=== PATIENT | female | born 1950 | race Caucasian/White ===

== ENCOUNTER 2017-03-19 18:26 | Observation (INO) ==
[2017-03-19] MEDS ORDERED: 0.9 % Sodium Chloride 1,000 ML IVC ONE (19:24)
--- NOTE | 2017-03-19 19:34 | Emergency Department Note ---
Disposition Clinical Impression: Weakness Disposition: Still a Patient Condition: Good Referrals: NO,PCP [Primary Care Provider] - Forms: ED Satisfaction Letter Fall HPI - General Chief Complaint: ED Fall Stated Complaint: fall last week, not feeling like her self Time Seen by Provider: 03/19/17 19:07 Source: patient - History of Present Illness HPI Narrative: This is a 66-year-old female who is brought in by her daughter today for altered mental status confusion urinating on herself and not quite acting right. She also noticed that her blood pressure is dropping. She states she has had quite a few bouts of diarrhea in the last week as well. She states that she fell 4 times in the last 3 weeks most recent time was a few days ago when she struck her head at that time. She did not get evaluated for it. Daughter states that when the acute change in mental status occurred. She states she is more argumentative although that is her baseline because of her dementia but also that she is just not quite herself. Daughter states that she has not been taking her medications and she is not being compliant. She currently lives with another daughter and refuses to go to [facility] at this time. Patient is now urinating on herself frequently and daughter is having to provide her with depends which she has never needed before. They are also describing increased weakness. No fevers no back pain she has also developed a cough lately no chest pain no headache - Related Data Home Medications Medication Instructions Recorded Confirmed Butenafine HCl [Lotrimin Ultra] 12 gm TP 03/19/17 Calcium Carbonate/Vitamin D3 1 each PO DAILY 03/19/17 03/19/17 [Calcium 500 + Vit D Caplet] Donepezil HCl [Aricept] 5 mg PO HS 03/19/17 03/19/17 Fluticasone Propionate [Flovent 50 mcg IH 03/19/17 Diskus] Glimepiride [Amaryl] 2 mg PO 0800 03/19/17 03/19/17 Losartan Potassium [Cozaar] 25 mg PO DAILY 03/19/17 03/19/17 Metformin HCl [Glucophage] 1,000 mg PO BID 03/19/17 03/19/17 Pravastatin Sodium [Pravachol] 20 mg PO 03/19/17 Allergies Allergy/AdvReac Type Severity Reaction Status Date / Time sulfamethoxazole Allergy Rash Verified 03/19/17 18:28 [From Bactrim] trimethoprim [From Bactrim] Allergy Rash Verified 03/19/17 18:28 Review of Systems: ROS reviewed and negative except as per HPI Chart generated with voice recognition software Fall PMH - Past Medical History Medical history: Reports: dementia, diabetes, hypertension Reports: Recurrent Falls Psychiatric history: Reports: no psych history - Social History Smoking Status: Current some day smoker Alcohol use: Reports: none Drug use: Reports: none Physical Exam General: NAD, slightly hypotensive Head: normocephalic, atraumatic Neck: NO CLA, Supple Chest wall: normal rise, no crepitus, no deformity noted, Lungs: CTAB Heart: RRR Abd: soft, nontender Ext: moves all four extremities, no obvious deformities Skin: cap refill normal, warm, dry Psych: normal affect, not anxious - General Limitations: no limitations General appearance: alert Course Vital Signs Temperature 98.0 F 03/19/17 18:29 Pulse Rate 89 03/19/17 18:29 Respiratory Rate 18 03/19/17 18:29 Blood Pressure 99/66 03/19/17 18:29 O2 Sat by Pulse Oximetry 97 03/19/17 18:29 Temperature 98.0 F 03/19/17 18:29 Pulse Rate 89 03/19/17 18:29 Respiratory Rate 18 03/19/17 18:29 Blood Pressure 99/66 03/19/17 18:29 O2 Sat by Pulse Oximetry 97 03/19/17 18:29 Oxygen Delivery Oxygen Delivery Room Air S.B.A.R. - S.B.A.R. Situation: Demographics, MOA Background: Presenting Complaint, Relevant PMH, Meds, & Allergies Assessment: Vital Signs, Course and respsone to treatment, Exam Concerns, Patient/Family Expectation, Pertinant Lab Results, Outstanding Labs Recommendation: Recommendation based on pending studies, treatments, or consults S.B.A.R. Report Given to: Dr Brandon MendesB.ALetty Repor Time: 20:02
[2017-03-19 20:02] LABS: Basophils % 0.2 %; Eosinophils # 0.1 K/mcL (0.0-0.6); Eosinophils % 1.5 %; Hematocrit 34.2 % (35.3-44.9); Hemoglobin 10.9 g/dL (11.5-15.4); Immature Granulocytes % 0.2 % (0-4); Lymphocytes # 1.4 K/mcL (0.6-4.6); Mean Corpuscular HGB Conc 31.9 g/dL (31.6-35.5); Mean Corpuscular Hemoglobin 28.1 pg (28.0-33.3); Mean Corpuscular Volume 88.1 fL (83.0-100.0); Mean Platelet Volume 8.5 fL (9.4-12.4); Monocytes # 0.4 K/mcL (0.0-1.3); Monocytes % 7.9 %; Neutrophils # 3.5 K/mcL (1.6-8.9); Platelet Count 275 K/mcL (140-400); Red Blood Count 3.88 M/mcL (3.82-4.97); Red Cell Distribution Width 14.6 % (11.5-14.5); Segmented Neutrophils % 65.2 %
[2017-03-19 20:18] LABS: BUN/Creatinine Ratio 28 (6-26); Blood Urea Nitrogen 30 mg/dL (7-20); Calcium 8.5 mg/dL (8.6-10.8); Carbon Dioxide 24 mEq/L (19-29); Chloride 107 mEq/L (98-109); Glucose 106 mg/dL (70-99); Osmolality,Calculated 299 (280-300); Potassium 4.1 mEq/L (3.5-4.5); Sodium 141 mEq/L (136-145); eGFR For African Americans > 60 (> 60); eGFR For Non-African Americans 50 (> 60)
[2017-03-19 21:38] LABS: Bilirubin,Urine Negative (Negative); Blood,Urine Negative (Negative); Clarity,Urine Clear (Clear); Color,Urine Yellow (Yellow); Glucose,Urine (UA) Normal (Normal); Ketones,Urine Negative (Negative); Leukocyte Esterase,Urine Small (Negative); Nitrite,Urine Negative (Negative); Protein,Urine Negative (Neg-Trace); Urobilinogen,Urine Normal (Normal)
[2017-03-19 21:56] LABS: RBC,Urine 0-3 per hpf (0-3)
[2017-03-19 21:57] LABS: Hyaline Casts,Urine Few per lpf (None-Few); Mucus,Urine Few (Few); Squamous Epithelial Cell,Urine Few per lpf (None-Few)
[2017-03-20] MEDS ORDERED: CefTRIAXone 1,000 MG in D5% in Water (Mini-Bag+) 100 ML IVPB STA (01:31)
[2017-03-20] MEDS ORDERED: *HR* Dextrose 50 % in Water (Syg) 50 ML SYRINGE IVP PRN (02:33)
[2017-03-20] MEDS ORDERED: D5% in Water 1,000 ML IVC PRN (02:33)
[2017-03-20] MEDS ORDERED: Naloxone 0.4 MG/ML INJ IVP PRN (02:33)
[2017-03-20] MEDS ORDERED: Dextrose Gel 15 GM PO PRN ×2 (02:33)
[2017-03-20] MEDS: 0.9 % Sodium Chloride 1,000 ML IVC SCH (02:50)
[2017-03-20 06:48] LABS: Basophils % 0.2 %; Eosinophils # 0.1 K/mcL (0.0-0.6); Eosinophils % 1.8 %; Hematocrit 31.6 % (35.3-44.9); Hemoglobin 10.2 g/dL (11.5-15.4); Immature Granulocytes % 0.2 % (0-4); Lymphocytes # 1.6 K/mcL (0.6-4.6); Lymphocytes % 35.4 %; Mean Corpuscular HGB Conc 32.3 g/dL (31.6-35.5); Mean Corpuscular Hemoglobin 28.5 pg (28.0-33.3); Mean Corpuscular Volume 88.3 fL (83.0-100.0); Mean Platelet Volume 8.6 fL (9.4-12.4); Monocytes # 0.4 K/mcL (0.0-1.3); Monocytes % 9.3 %; Neutrophils # 2.3 K/mcL (1.6-8.9); Platelet Count 242 K/mcL (140-400); Red Blood Count 3.58 M/mcL (3.82-4.97); Red Cell Distribution Width 14.6 % (11.5-14.5); Segmented Neutrophils % 53.1 %
[2017-03-20 06:55] LABS: Prothrombin Time 11.3 Seconds (9.4-12.1)
[2017-03-20 06:58] LABS: Activated Partial Thrombo Time 31.8 Seconds (26.0-36.0)
[2017-03-20 07:05] LABS: BUN/Creatinine Ratio 33 (6-26); Blood Urea Nitrogen 27 mg/dL (7-20); Carbon Dioxide 23 mEq/L (19-29); Chloride 111 mEq/L (98-109); Glucose 125 mg/dL (70-99); Magnesium 1.9 mg/dL (1.6-2.6); Osmolality,Calculated 303 (280-300); Phosphorous 4.1 mg/dL (2.3-4.7); Potassium 3.8 mEq/L (3.5-4.5); Sodium 143 mEq/L (136-145); eGFR For African Americans > 60 (> 60); eGFR For Non-African Americans > 60 (> 60)
[2017-03-20] MEDS: Insulin LISPRO 300 UNITS/3 ML VIAL SQ SCH ×3 (11:10→16:37)
[2017-03-20] MEDS: *HR* Metformin 500 MG TABLET PO SCH ×2 (11:12→18:14)
[2017-03-20] MEDS: *HR* Glimepiride 2 MG TABLET PO SCH (11:12)
--- NOTE | 2017-03-20 12:37 | Internal Med History&Physical ---
Date of Encounter: 03/20/17 Time of Encounter: 12:05 Assessment and Plan (1) Weakness Current visit: Yes Status: Acute Will order PT and OT evaluation. (2) Confusion Current visit: Yes Status: Acute Suspect multifactorial etiology including underlying dementia with superimposed renal insufficiency which is now resolved. Continue Aricept and order TSH and B12 levels. Head CT was unremarkable. (3) Anemia Current visit: Yes Status: Acute Will order anemia testing in a.m. Qualifiers: Anemia type: unspecified type Qualified Code(s): D64.9 - Anemia, unspecified (4) Hypertension Current visit: Yes Status: Acute We will hold antihypertensives since blood pressure is borderline low Qualifiers: Hypertension type: essential hypertension Qualified Code(s): I10 - Essential (primary) hypertension (5) DM type 2 (diabetes mellitus, type 2) Current visit: Yes Status: Chronic We will check hemoglobin A1c in a.m. Continue Glucophage and Amaryl with Accu- Cheks and SSI Qualifiers: Diabetes mellitus complication status: with unspecified complications Diabetes mellitus retirement insulin use: without exterminator helper termite use Qualified Code( s): E11.8 - Type 2 diabetes mellitus with unspecified complications Internal Medicine - H&P: HPI Chief complaint: Weakness and confusion Admitted From: Home Plans for Post Hospital Care: Home History of present illness: Ms. Barrera is a 66 year old female who came to the emergency room at the insistence of her daughter who reported she had been confused and weak with having abnormal behaviors. The patient reports she had a fall at home 1-2 weeks ago striking her face on the floor. There was expected ecchymoses but no other significant injuries. She states now she feels her balance decreased after the fall. She did not seek medical attention. She specifically denies abdominal pain , vomiting or diarrhea, chest pain or dyspnea. Emergency room report states she had vomiting and diarrhea but patient denies this. She was evaluated in emergency room and admitted to [facility] floor for ongoing care needs. Past Med Surg Social Fam HX - Past Medical History Medical history: dementia, diabetes, hypertension Psychiatric history: no psych history - Social History Smoking Status: Current some day smoker Smokeless Tobacco Status: No Alcohol use: none Drug use: none - Family History Mother Twin of Family Member: Yes, Identical Living Status: Hx Family Cardiac Disorders: No Hx Family Respiratory Disorders: No Hx Family Cancer: No Hx Family GI Disorders: No Hx Family Genitourinary Disorders: No Hx Family Endocrine Disorder: Yes (DM) Hx Family Musculoskeletal Disorders: No Hx Family Neuromuscular Disorders: No Hx Family Neurologic Disorders: No Hx Family HEENT Disorders: No Hx Family Autoimmune Disorders: No Hx Family Reproductive Disorders: No Hx Family Psychosocial Disorders: No Hx Family Medical Disorders: No Internal Medicine - H&P: Meds Butenafine HCl [Lotrimin Ultra] 12 gm TP 03/19/17 [History] Calcium Carbonate/Vitamin D3 [Calcium 500 + Vit D Caplet] 1 each PO DAILY [History] Donepezil HCl [Aricept] 5 mg PO HS 03/19/17 [History] Fluticasone Propionate [Flovent Diskus] 50 mcg IH 03/19/17 [History] Glimepiride [Amaryl] 2 mg PO 0800 03/19/17 [History] Losartan Potassium [Cozaar] 25 mg PO DAILY 03/19/17 [History] Metformin HCl [Glucophage] 1,000 mg PO BID 03/19/17 [History] Pravastatin Sodium [Pravachol] 20 mg PO 03/19/17 [History] Allergies sulfamethoxazole [From Bactrim] Allergy (Verified 03/19/17 18:28) Rash trimethoprim [From Bactrim] Allergy (Verified 03/19/17 18:28) Rash All Systems PM: A 10-system review of systems was performed and is negative for pertinent findings except as documented above in the HPI. Review of systems: General: She states her weight has decreased from 300 pounds one year ago approximately 200 pounds at present, intentionally Cardiovascular: She has history of hypertension but denies [place] heart failure angina DVT or pulmonary embolus Respiratory: She smoked since age 16 up to 1-1/2 packs per day. She has not had PFTs and does not wear home oxygen GI: She has had cholecystectomy but denies disorders of her liver or exocrine pancreas : She denies hematuria dysuria or kidney stones. She reports tubal ligation many years ago Neurologic: She has a diagnosis of dementia and takes Aricept. She denies large distribution strokes or seizures Endocrine: She was diagnosed with DM 2 approximately 20 years ago. She has hyperlipidemia but denies known thyroid disease Hematology/oncology: She had anemia on ER labs. She denies other blood disorders or internal malignancies Psychiatric: She denies anxiety depression or other mental health issues Musk skeletal: She denies arthritis gout or other bone joint or muscle disorders. - Constitutional Vitals: Temp Pulse Resp BP Pulse Ox 97.8 F 113 16 101/59 97 03/20/17 10:58 03/20/17 10:58 03/20/17 10:58 03/20/17 10:58 03/20/17 10:58 Exam: Gen.: She is a well-developed well-nourished female who appears in no severe distress at present time HEENT: Head is atraumatic and normocephalic. Eyes: EOMI. There is no scleral icterus. Mouth: Mucosa is moist. Neck: Supple and nontender. There is no thyromegaly or adenopathy noted. Heart: Regular without murmurs gallops or ectopics. Lungs: No wheezes or crackles are heard. Abdomen: Soft and nontender. No masses or guarding are noted. She has well- healed right upper quadrant and longitudinal midline scar. Extremities: There is no cyanosis edema or clubbing noted. Dorsalis pedis and posttibial pulses are 1-2 over 2 bilaterally. She has mild DJD changes of her hands. Neurologic: Mental status: She is talkative and a fair historian. She has difficulty remembering some details of her history. She repeats herself in conversation frequently. Cranial nerves: Smile is symmetric. Forehead wrinkles bilaterally. Tongue protrudes midline. EOMI. Motor: There is no pronator drift. Cerebellar: Finger to nose is intact bilaterally. Skin: Warm and dry Internal Med - H&P Results - Labs CBC & Chem 7: 03/20/17 06:30 03/20/17 06:30 Labs: Short CBC 03/20/17 Range/Units 06:30 WBC 4.4 (4.3-11.1) K/mcL Hgb 10.2 L (11.5-15.4) g/dL Hct 31.6 L (35.3-44.9) % Plt Count 242 (140-400) K/mcL Neutrophils # 2.3 (1.6-8.9) K/mcL BMP 03/20/17 06:30 Sodium 143 Potassium 3.8 Chloride 111 H Carbon Dioxide 23 BUN 27 H Creatinine 0.82 Glucose 125 H Calcium 8.0 L
[2017-03-21] MEDS ORDERED: 0.9 % Sodium Chloride 1,000 ML IVC SCH (03:15)
[2017-03-21 04:51] LABS: Basophils % 0.2 %; Eosinophils # 0.1 K/mcL (0.0-0.6); Eosinophils % 2.8 %; Hematocrit 33.9 % (35.3-44.9); Hemoglobin 10.5 g/dL (11.5-15.4); Immature Granulocytes % 0.2 % (0-4); Lymphocytes # 1.7 K/mcL (0.6-4.6); Lymphocytes % 35.2 %; Mean Corpuscular Hemoglobin 27.7 pg (28.0-33.3); Mean Corpuscular Volume 89.4 fL (83.0-100.0); Mean Platelet Volume 8.9 fL (9.4-12.4); Monocytes # 0.4 K/mcL (0.0-1.3); Monocytes % 7.7 %; Neutrophils # 2.7 K/mcL (1.6-8.9); Platelet Count 264 K/mcL (140-400); Red Blood Count 3.79 M/mcL (3.82-4.97); Red Cell Distribution Width 14.6 % (11.5-14.5); Segmented Neutrophils % 53.9 %
[2017-03-21 05:13] LABS: Alanine Aminotransferase 11 Units/L (0-55); Albumin 3.1 g/dL (3.5-5.0); Albumin/Globulin Ratio 1.1 (1.1-2.2); Alkaline Phosphatase 65 Units/L (38-126); Aspartate Amino Transferase 11 Units/L (5-34); BUN/Creatinine Ratio 24 (6-26); Bilirubin,Total 0.2 mg/dL (0.2-1.2); Blood Urea Nitrogen 20 mg/dL (7-20); Calcium 8.4 mg/dL (8.6-10.8); Carbon Dioxide 23 mEq/L (19-29); Chloride 111 mEq/L (98-109); Globulin 2.9 g/dL (2.4-3.5); Glucose 80 mg/dL (70-99); Osmolality,Calculated 300 (280-300); Potassium 4.1 mEq/L (3.5-4.5); Sodium 144 mEq/L (136-145); eGFR For African Americans > 60 (> 60); eGFR For Non-African Americans > 60 (> 60)
[2017-03-21 05:38] LABS: Thyroid Stimulating Hormone 4.578 mcIU/mL (0.350-4.840)
[2017-03-21] MEDS: *HR* Glimepiride 2 MG TABLET PO SCH (08:34)
[2017-03-21] MEDS: *HR* Metformin 500 MG TABLET PO SCH ×2 (08:35→16:46)
[2017-03-21 08:39] LABS: Hemoglobin A1C 5.8 %
[2017-03-21] MEDS: Insulin LISPRO 300 UNITS/3 ML VIAL SQ SCH ×3 (08:39→16:08)
[2017-03-21 10:23] LABS: % Iron Saturation 6 % (15-50); Iron 26 mcg/dL (50-170); Transferrin 315 mg/dL (180-382)
[2017-03-21 10:40] LABS: Ferritin 11 ng/ml (5-204)
[2017-03-21 13:49] LABS: Folate 13.3 ng/mL (7.0-31.4)
--- NOTE | 2017-03-21 14:45 | Internal Med Progress Note ---
Date of Encounter: 03/21/17 Time of Encounter: 14:30 - Assessment and plan (1) Weakness Current Visit: Yes Status: Acute Assessment and plan: March 21. Continue PT and OT intervention (2) Confusion Current Visit: Yes Status: Acute Assessment and plan: March 21. Azotemia remains resolved. Continue Aricept. (3) Anemia Current Visit: Yes Status: Acute Assessment and plan: March 21. Anemia testing shows iron deficiency. Will give ferrous sulfate with vitamin C. We will order CT of chest, abdomen, and pelvis and she has 50- 75 pound weight loss in the past 1-2 years. Qualifiers: Anemia type: unspecified type Qualified Code(s): D64.9 - Anemia, unspecified (4) Hypertension Current Visit: Yes Status: Acute Assessment and plan: March 21. We will discontinue blood pressure medication since she is borderline hypotensive Qualifiers: Hypertension type: essential hypertension Qualified Code(s): I10 - Essential (primary) hypertension (5) DM type 2 (diabetes mellitus, type 2) Current Visit: Yes Status: Chronic Assessment and plan: March 21. Hemoglobin A1c is acceptable at 5.8%. We will decrease Amaryl to avoid hypoglycemia. Qualifiers: Diabetes mellitus complication status: with unspecified complications Diabetes mellitus terminal press operator insulin use: without longterm use Qualified Code( s): E11.8 - Type 2 diabetes mellitus with unspecified complications - Subjective Interval history: March 21. She has no new complaints and feels better. She had borderline hypotension last evening requiring IV fluid bolus. Blood pressure has improved. - Constitutional Vitals: Temp Pulse Resp BP Pulse Ox 97.7 F 58 16 111/68 98 03/21/17 11:12 03/21/17 11:12 03/21/17 11:12 03/21/17 11:12 03/21/17 11:12 Exam: She is sitting in bed resting comfortably. She is still a fair historian about past history. Her affect is overall cheerful. I reviewed her medications and lab results. Internal Medicine: Result - Labs CBC & Chem 7: 03/21/17 04:05 03/21/17 04:00 Labs: Short CBC 03/21/17 Range/Units 04:05 WBC 4.9 (4.3-11.1) K/mcL Hgb 10.5 L (11.5-15.4) g/dL Hct 33.9 L (35.3-44.9) % Plt Count 264 (140-400) K/mcL Neutrophils # 2.7 (1.6-8.9) K/mcL BMP 03/21/17 04:00 Sodium 144 Potassium 4.1 Chloride 111 H Carbon Dioxide 23 BUN 20 Creatinine 0.84 Glucose 80 Calcium 8.4 L Liver Function 03/21/17 Range/Units 04:00 Total Bilirubin 0.2 (0.2-1.2) mg/dL AST 11 (5-34) Units/L ALT 11 (0-55) Units/L Alkaline Phosphatase 65 (38-126) Units/L Albumin 3.1 L (3.5-5.0) g/dL - ABG Interpretation ABG results: PT/INR, D-dimer PT 11.3 Seconds (9.4-12.1) 03/20/17 06:30 Consult Discharge Plan - Plan Referrals: NO,PCP [Primary Care Provider] - 1 week
[2017-03-22 05:52] LABS: Chol/HDL Ratio 3.4 (0-4.9)
[2017-03-22] MEDS: Ascorbic Acid 500 MG TABLET PO SCH ×2 (06:11→08:00)
[2017-03-22] MEDS: *HR* Metformin 500 MG TABLET PO SCH ×2 (07:50→18:00)
[2017-03-22] MEDS: *HR* Glimepiride 2 MG TABLET PO SCH (07:53)
[2017-03-22] MEDS: Insulin LISPRO 300 UNITS/3 ML VIAL SQ SCH ×3 (08:00→18:00)
[2017-03-22] MEDS: 0.9 % Sodium Chloride 1,000 ML IVC SCH (18:11)
--- NOTE | 2017-03-22 19:01 | Internal Med Progress Note ---
Date of Encounter: 03/22/17 Time of Encounter: 18:50 - Assessment and plan (1) Weakness Current Visit: Yes Status: Acute Assessment and plan: March 21. Continue PT and OT intervention March 22. Continue therapy interventions. Anticipate discharge to [facility] March 24 (2) Confusion Current Visit: Yes Status: Acute Assessment and plan: March 21. Azotemia remains resolved. Continue Aricept. March 22. We will increase Aricept and start Namenda. (3) Anemia Current Visit: Yes Status: Acute Assessment and plan: March 21. Anemia testing shows iron deficiency. Will give ferrous sulfate with vitamin C. We will order CT of chest, abdomen, and pelvis and she has 50- 75 pound weight loss in the past 1-[address] scans were unremarkable for significant pathology. Continue ferrous sulfate with vitamin C. Qualifiers: Anemia type: unspecified type Qualified Code(s): D64.9 - Anemia, unspecified (4) Hypertension Current Visit: Yes Status: Acute Assessment and plan: March 21. We will discontinue blood pressure medication since she is borderline hypotensive March 22. Blood pressure remained stable off medication. Qualifiers: Hypertension type: essential hypertension Qualified Code(s): I10 - Essential (primary) hypertension (5) DM type 2 (diabetes mellitus, type 2) Current Visit: Yes Status: Chronic Assessment and plan: March 21. Hemoglobin A1c is acceptable at 5.8%. We will decrease Amaryl to avoid hypoglycemia. March 22. Continue lower dose Amaryl. Blood sugars are acceptable. Qualifiers: Diabetes mellitus complication status: with unspecified complications Diabetes mellitus senior living insulin use: without senior living use Qualified Code( s): E11.8 - Type 2 diabetes mellitus with unspecified complications - Subjective Interval history: March 21. She has no new complaints and feels better. She had borderline hypotension last evening requiring IV fluid bolus. Blood pressure has improved. March 22. She has no new complaints and feels better. - Constitutional Vitals: Temp Pulse Resp BP Pulse Ox 98.2 F 53 16 132/65 100 03/22/17 16:13 03/22/17 16:13 03/22/17 16:13 03/22/17 16:13 03/22/17 16:13 Exam: She is resting comfortably on the side of the bed. She walked from the bathroom without difficulty. Affect is more bright and cheerful than yesterday. She is not agitated and angry. I reviewed her medications and lab results. Internal Medicine: Result - Labs CBC & Chem 7: 03/21/17 04:05 03/21/17 04:00 - ABG Interpretation ABG results: PT/INR, D-dimer PT 11.3 Seconds (9.4-12.1) 03/20/17 06:30 - Impressions Impressions Abdomen/Pelvis CT 03/21/17 14:41 IMPRESSION: 1. No acute process within the chest, abdomen, or pelvis. 2. Stable partially calcified cystic lesions within the spleen, unchanged from prior exams, and likely representing benign complicated cysts. 3. Patient status post cholecystectomy. D/ / 03/21/2017 15:30:49 Maged Whitlock MD / bia Interpreting Provider: Maged Whitlock MD Chest CT 03/21/17 14:41 IMPRESSION: 1. No acute process within the chest, abdomen, or pelvis. 2. Stable partially calcified cystic lesions within the spleen, unchanged from prior exams, and likely representing benign complicated cysts. 3. Patient status post cholecystectomy. D/ / 03/21/2017 15:30:49 Maged Whitlock MD / bia Interpreting Provider: Maged Whitlock MD Consult Discharge Plan - Plan Referrals: NO,PCP [Primary Care Provider] - 1 week
[2017-03-23] MEDS: *HR* Metformin 500 MG TABLET PO SCH ×2 (08:00→17:29)
[2017-03-23] MEDS: Ascorbic Acid 500 MG TABLET PO SCH (08:12)
[2017-03-23] MEDS: *HR* Glimepiride 2 MG TABLET PO SCH (08:12)
[2017-03-23] MEDS: Insulin LISPRO 300 UNITS/3 ML VIAL SQ SCH ×3 (08:15→16:53)
--- NOTE | 2017-03-23 10:21 | Internal Med Progress Note ---
Date of Encounter: 03/23/17 Time of Encounter: 10:15 - Assessment and plan (1) Weakness Current Visit: Yes Status: Acute Assessment and plan: March 21. Continue PT and OT intervention March 22. Continue therapy interventions. Anticipate discharge to [facility] March 24 (2) Confusion Current Visit: Yes Status: Acute Assessment and plan: March 21. Azotemia remains resolved. Continue Aricept. March 22. We will increase Aricept and start Namenda. (3) Anemia Current Visit: Yes Status: Acute Assessment and plan: March 21. Anemia testing shows iron deficiency. Will give ferrous sulfate with vitamin C. We will order CT of chest, abdomen, and pelvis and she has 50- 75 pound weight loss in the past 1-[address] scans were unremarkable for significant pathology. Continue ferrous sulfate with vitamin C. Qualifiers: Anemia type: unspecified type Qualified Code(s): D64.9 - Anemia, unspecified (4) Hypertension Current Visit: Yes Status: Acute Assessment and plan: March 21. We will discontinue blood pressure medication since she is borderline hypotensive March 22. Blood pressure remained stable off medication. Qualifiers: Hypertension type: essential hypertension Qualified Code(s): I10 - Essential (primary) hypertension (5) DM type 2 (diabetes mellitus, type 2) Current Visit: Yes Status: Chronic Assessment and plan: March 21. Hemoglobin A1c is acceptable at 5.8%. We will decrease Amaryl to avoid hypoglycemia. March 22. Continue lower dose Amaryl. Blood sugars are acceptable. Qualifiers: Diabetes mellitus complication status: with unspecified complications Diabetes mellitus longterm insulin use: without longterm use Qualified Code( s): E11.8 - Type 2 diabetes mellitus with unspecified complications - Subjective Interval history: March 21. She has no new complaints and feels better. She had borderline hypotension last evening requiring IV fluid bolus. Blood pressure has improved. March 22. She has no new complaints and feels better. March 23. She has no complaints. - Constitutional Vitals: Temp Pulse Resp BP Pulse Ox 97.8 F 52 18 105/66 98 03/23/17 07:43 03/23/17 07:43 03/23/17 07:43 03/23/17 07:43 03/23/17 07:43 Exam: She is sitting on the side of bed resting comfortably. She is pleasant and talkative. She does not remember me from previous visits. Affect is bright and cheerful. I reviewed her medications and lab results. Internal Medicine: Result - Labs CBC & Chem 7: 03/21/17 04:05 03/21/17 04:00 - ABG Interpretation ABG results: PT/INR, D-dimer PT 11.3 Seconds (9.4-12.1) 03/20/17 06:30 - Impressions Impressions Abdomen/Pelvis CT 03/21/17 14:41 IMPRESSION: 1. No acute process within the chest, abdomen, or pelvis. 2. Stable partially calcified cystic lesions within the spleen, unchanged from prior exams, and likely representing benign complicated cysts. 3. Patient status post cholecystectomy. D/ / 03/21/2017 15:30:49 Maged Whitlock MD / bia Interpreting Provider: Maged Whitlock MD Chest CT 03/21/17 14:41 IMPRESSION: 1. No acute process within the chest, abdomen, or pelvis. 2. Stable partially calcified cystic lesions within the spleen, unchanged from prior exams, and likely representing benign complicated cysts. 3. Patient status post cholecystectomy. D/ / 03/21/2017 15:30:49 Maged Whitlock MD / bia Interpreting Provider: Maged Whitlock MD Consult Discharge Plan - Plan Referrals: NO,PCP [Primary Care Provider] - 1 week
[2017-03-24] MEDS: *HR* Metformin 500 MG TABLET PO SCH (10:29)
[2017-03-24] MEDS: Insulin LISPRO 300 UNITS/3 ML VIAL SQ SCH ×2 (10:30→11:23)
[2017-03-24] MEDS: Ascorbic Acid 500 MG TABLET PO SCH (10:30)
[2017-03-24] MEDS: *HR* Glimepiride 2 MG TABLET PO SCH ×2 (10:31→11:24)
[2017-03-24 14:27] VITALS: BP 108/60
--- NOTE | 2017-03-24 14:30 | Discharge Summary ---
Date of Encounter: 03/24/17 Time of Encounter: 14:15 - Discharge Diagnosis (1) Weakness Priority: Primary Status: Acute (2) Confusion Priority: Secondary Status: Acute (3) Anemia Priority: Secondary Status: Acute Qualifiers: Anemia type: unspecified type Qualified Code(s): D64.9 - Anemia, unspecified (4) Hypertension Priority: Secondary Status: Chronic Qualifiers: Hypertension type: essential hypertension Qualified Code(s): I10 - Essential (primary) hypertension (5) DM type 2 (diabetes mellitus, type 2) Priority: Secondary Status: Chronic Qualifiers: Diabetes mellitus complication status: with unspecified complications Diabetes mellitus fpc insulin use: without fpc use Qualified Code( s): E11.8 - Type 2 diabetes mellitus with unspecified complications - Discharge Medications Prescriptions: Alprazolam [Xanax 0.5 MG Tablet] 0.5 mg PO Q8H 90 Days Donepezil [Aricept] 10 mg PO HS 365 Days Ferrous Sulfate 325 mg PO DAILY 30 Days Home Medications: Butenafine HCl [Lotrimin Ultra] 12 gm TP 03/19/17 [History] Calcium Carbonate/Vitamin D3 [Calcium 500 + Vit D Caplet] 1 each PO DAILY [History] Fluticasone Propionate [Flovent Diskus] 50 mcg IH 03/19/17 [History] Metformin HCl [Glucophage] 1,000 mg PO BID 03/19/17 [History] Pravastatin Sodium [Pravachol] 20 mg PO 03/19/17 [History] Alprazolam [Xanax 0.5 MG Tablet] 0.5 mg PO Q8H 90 Days 03/24/17 [Rx] Ascorbic Acid [Vitamin C] 500 mg PO DAILY tablet 03/24/17 [Rx] Donepezil [Aricept] 10 mg PO HS 365 Days 03/24/17 [Rx] Ferrous Sulfate 325 mg PO DAILY 30 Days 03/24/17 [Rx] Glimepiride [Amaryl] 1 mg PO 0800 #0 03/24/17 [Rx] Memantine [Namenda] 5 mg PO HS tablet 03/24/17 [Rx] Allergies/Adverse Reactions: Allergies sulfamethoxazole [From Bactrim] Allergy (Verified 03/19/17 18:28) Rash trimethoprim [From Bactrim] Allergy (Verified 03/19/17 18:28) Rash Procedures/tests Complete & Pending: Procedures Performed prior 72 hours Category Date Time Status CT abd pelvis wo no iv no oral [CT] Routine Cat Scan 03/21/17 14:[address] chest wo con [CT] Routine Cat Scan 03/21/17 14:41 Completed Date of admission: 03/20/17 02:03 Primary care physician: Gerry Anaya D.O. Consults: 03/20/17 03:16 Consult to Robot Designer [CONS] Routine Reason for SW Consult: pt verbalizes need for potential ECF placement 03/20/17 12:32 Consult to Occupational Therapy [CONS] Routine Comment: Evaluate, develop and implement POC Consult to Physical Therapy [CONS] Routine Comment: Evaluate, develop and implement POC - Patient Status Disposition: Transfer SNF Condition: Good Functional capacity at discharge: independent ambulation Overall status at discharge: patient is progressing back to baseline - Discharge Instructions - Diet and Activity Activity: as per physical therapy Diet: diabetic diet Hospital course: Ms. Barrera is a 66 year old female who came to the emergency room at the insistence of her daughter who reported she had been confused and weak with having abnormal behaviors. The patient reports she had a fall at home 1-2 weeks ago striking her face on the floor. There was expected ecchymoses but no other significant injuries. She states now she feels her balance decreased after the fall. She did not seek medical attention. She specifically denies abdominal pain , vomiting or diarrhea, chest pain or dyspnea. Emergency room report states she had vomiting and diarrhea but patient denies this. She was evaluated in emergency room and admitted to [facility] for ongoing care needs. Initial orders were written by the emergency room physician. I saw her on March 20 and performed the history and physical. She had physical therapy and occupational therapy evaluations with ongoing interventions. She made satisfactory progress in therapy. She remained periodically confused but has underlying dementia. I felt she was at her baseline by the time of discharge. B12 and TSH levels were normal. Her Aricept dose was increased to 10 mg daily and she was started on Namenda. Anemia testing otherwise showed iron 26, transferrin saturation 6%, and ferritin 11. She was started on ferrous sulfate with vitamin C and these will be continued at discharge. Her azotemia resolved with BUN and creatinine being 20 and 0.84 respectively on March 21. She was taken off Cozaar and her blood pressure remained satisfactory. On March 24 arrangements were completed for her to be discharged to a [facility] for three-day stay prior to transferring to [facility] for ongoing care needs. - Time Spent with Patient Total time spent providing and/or coordinating discharge services: - Constitutional Vitals: Temp Pulse Resp BP Pulse Ox 98.8 F 63 16 103/55 96 03/24/17 10:02 03/24/17 11:42 03/24/17 11:42 03/24/17 11:42 03/24/17 11:42
--- NOTE | 2017-03-24 14:41 | Physician Discharge Referral ---
ExtendedCare Referral Info Transfer To: [place] Provider in Charge: Paras Provider in Charge after Transfer: PCP - Diagnosis (1) Weakness Priority: Primary Status: Acute (2) Confusion Priority: Secondary Status: Acute (3) Anemia Priority: Secondary Status: Acute (4) Hypertension Priority: Secondary Status: Chronic (5) DM type 2 (diabetes mellitus, type 2) Priority: Secondary Status: Chronic Prognosis: Fair Aware of Diagnosis: Patient, Family Aware of Prognosis: Patient, Family - Transfer Medications Prescriptions: Alprazolam [Xanax 0.5 MG Tablet] 0.5 mg PO Q8H 90 Days Donepezil [Aricept] 10 mg PO HS 365 Days Ferrous Sulfate 325 mg PO DAILY 30 Days Home Medications: Butenafine HCl [Lotrimin Ultra] 12 gm TP 03/19/17 [History] Calcium Carbonate/Vitamin D3 [Calcium 500 + Vit D Caplet] 1 each PO DAILY [History] Fluticasone Propionate [Flovent Diskus] 50 mcg IH 03/19/17 [History] Metformin HCl [Glucophage] 1,000 mg PO BID 03/19/17 [History] Pravastatin Sodium [Pravachol] 20 mg PO 03/19/17 [History] Alprazolam [Xanax 0.5 MG Tablet] 0.5 mg PO Q8H 90 Days 03/24/17 [Rx] Ascorbic Acid [Vitamin C] 500 mg PO DAILY tablet 03/24/17 [Rx] Donepezil [Aricept] 10 mg PO HS 365 Days 03/24/17 [Rx] Ferrous Sulfate 325 mg PO DAILY 30 Days 03/24/17 [Rx] Glimepiride [Amaryl] 1 mg PO 0800 #0 03/24/17 [Rx] Memantine [Namenda] 5 mg PO HS tablet 03/24/17 [Rx] Allergies/Adverse Reactions: Allergies sulfamethoxazole [From Bactrim] Allergy (Verified 03/19/17 18:28) Rash trimethoprim [From Bactrim] Allergy (Verified 03/19/17 18:28) Rash - Respiratory Orders Smoking Cessation: Smoking cessation has been advised. For more information, call the [place] Tobacco Quit Line at 0-878-MDOT-NOW. - Mobility Orders Ambulate - Rehabiliation Orders Rehab Potential: Fair Rehab Orders: Evaluation for Physical Therapy, Evaluation for Occupational Therapy - Diet Orders No Concentrated Sweets CERTIFICATION: I certify that the transfer of the above named patient to an Extended Care Facility is necessary for the continuing treatment of the diagnosis listed. The above information is true and accurate reflection of patient's current condition. Confidential - Redisclosure prohibited without a patient's written consent.
[2017-03-24] MEDS ORDERED: Insulin LISPRO 300 UNITS/3 ML VIAL SQ SCH (21:00)
== END 2017-03-24 16:20 ==
LOC: INPPIK 18:26 → EMEROOPIK 18:26 → INPPIK 03-20 02:20
PROVIDERS: ADMIT Internal Medicine; ATTEND Internal Medicine

== ENCOUNTER 2020-10-21 13:00 | Inpatient (IN) ==
[2020-10-21] MEDS ORDERED: Vancomycin 1,250 MG in D5% in Water 250 ML IVPB ONE ×2 (13:27→14:00)
[2020-10-21] MEDS ORDERED: Piperacillin/Tazobactam 3.375 GM in 0.9 % Sodium Chloride Mini Bag 100 ML IVPB ONE (13:27)
[2020-10-21 13:42] LABS: Basophils % 0.1 %; Eosinophils # 0.1 K/mcL (0.0-0.6); Eosinophils % 0.8 %; Hematocrit 42.1 % (35.3-44.9); Hemoglobin 13.3 g/dL (11.5-15.4); Immature Granulocytes % 0.4 % (0-4); Lymphocytes # 1.3 K/mcL (0.6-4.6); Lymphocytes % 10.5 %; Mean Corpuscular HGB Conc 31.6 g/dL (31.6-35.5); Mean Corpuscular Hemoglobin 29.2 pg (28.0-33.3); Mean Corpuscular Volume 92.5 fL (83.0-100.0); Mean Platelet Volume 8.7 fL (9.4-12.4); Monocytes # 0.7 K/mcL (0.0-1.3); Monocytes % 5.7 %; Neutrophils # 9.8 K/mcL (1.6-8.9); Platelet Count 276 K/mcL (140-400); Red Blood Count 4.55 M/mcL (3.82-4.97); Red Cell Distribution Width 15.7 % (11.5-14.5); Segmented Neutrophils % 82.5 %; White Blood Count 11.9 K/mcL (4.3-11.1)
[2020-10-21 13:50] LABS: Prothrombin Time 12.1 Seconds (9.4-12.1)
[2020-10-21] MEDS: 0.9 % Sodium Chloride 1,000 ML IVC SCH ×3 (13:51→16:47)
[2020-10-21 13:53] LABS: Activated Partial Thrombo Time 29.7 Seconds (26.0-36.0)
[2020-10-21 14:01] LABS: BUN/Creatinine Ratio 27 (6-26); Blood Urea Nitrogen 20 mg/dL (8-23); Calcium 8.7 mg/dL (8.6-10.3); Carbon Dioxide 26 mEq/L (23-29); Chloride 102 mEq/L (98-107); Glucose 278 mg/dL (70-105); Osmolality,Calculated 305 (280-300); Potassium 4.3 mEq/L (3.5-5.1); Sodium 141 mEq/L (136-145); eGFR For African Americans > 60 (> 60); eGFR For Non-African Americans > 60 (> 60)
[2020-10-21 14:28] LABS: Albumin 3.4 g/dL (3.5-5.7); Albumin/Globulin Ratio 1.1 (1.1-2.2); Bilirubin,Direct 0.1 mg/dL (0.0-0.2); Bilirubin,Indirect 0.3 mg/dL (0.0-1.0); Bilirubin,Total 0.4 mg/dL (0.3-1.0); Globulin 3.2 g/dL (2.4-3.5); Magnesium 1.4 mg/dL (1.6-2.6); Phosphorous 3.5 mg/dL (2.7-4.5); Total Protein 6.6 g/dL (6.4-8.9)
[2020-10-21] MEDS ORDERED: Acetaminophen 325 MG TABLET PO PRN (16:03)
[2020-10-21] MEDS ORDERED: Ondansetron 4 MG/2 ML VIAL IVP PRN (16:03)
[2020-10-21] MEDS ORDERED: Naloxone 0.4 MG/ML INJ IVP PRN (16:03)
[2020-10-21] MEDS ORDERED: D5% in Water 1,000 ML IVC PRN (16:28)
[2020-10-21] MEDS ORDERED: *HR* Dextrose 50 % in Water (Vial) 50 ML VIAL IVP PRN (16:28)
[2020-10-21] MEDS ORDERED: Dextrose Gel 15 GM/37.5 ML TUBE PO PRN ×2 (16:28)
[2020-10-21] MEDS ORDERED: Vancomycin (wt based) 1,000 MG VIAL IVPB SCH (17:00)
[2020-10-21 17:48] LABS: Bilirubin,Urine Negative (Negative); Blood,Urine Negative (Negative); Clarity,Urine Slightly Cloudy (Clear); Color,Urine Yellow (Yellow); Glucose,Urine (UA) 100 mg/dL (Normal); Ketones,Urine Negative (Negative); Leukocyte Esterase,Urine Small (Negative); Nitrite,Urine Positive (Negative); Protein,Urine Negative (Neg-Trace); Specific Gravity,Urine >= 1.030 (1.010-1.025); Urobilinogen,Urine Normal (Normal)
[2020-10-21 17:57] LABS: Bacteria,Urine Many per hpf (None-Few); Granular Casts,Urine Few per lpf (None Seen); Squamous Epithelial Cell,Urine Few per hpf (None-Few); Transitional Epi Cells,Urine Few per hpf (None-Few); WBC,Urine 30-50 per hpf (0-3)
[2020-10-21] MEDS ORDERED: OXYGEN PRN (19:17)
[2020-10-21] MEDS ORDERED: Isovue-370 500 ML BOTTLE IVP ONE (19:19)
[2020-10-21] MEDS: Rivastigmine Tartrate (oral) 1.5 MG CAPSULE PO SCH (21:56)
[2020-10-21] MEDS: OLANZapine 5 MG TAB.RAPDIS PO SCH (21:56)
[2020-10-21] MEDS: Insulin LISPRO 300 UNITS/3 ML VIAL SQ SCH (21:57)
[2020-10-21] MEDS: Latanoprost 2.5 ML BOTTLE BOTH EYES SCH (21:57)
[2020-10-21] MEDS: Piperacillin/Tazobactam 3.375 GM in 0.9 % Sodium Chloride Mini Bag 100 ML IVPB SCH (21:58)
[2020-10-21 22:22] LABS: Estimated Average Glucose 192 mg/dl
[2020-10-22] MEDS: 0.9 % Sodium Chloride 1,000 ML IVC SCH ×4 (03:25→12:48)
[2020-10-22] MEDS: Piperacillin/Tazobactam 3.375 GM in 0.9 % Sodium Chloride Mini Bag 100 ML IVPB SCH ×3 (05:05→22:53)
[2020-10-22 07:51] LABS: Basophils % 0.2 %; Eosinophils # 0.1 K/mcL (0.0-0.6); Eosinophils % 1.1 %; Hematocrit 38.6 % (35.3-44.9); Hemoglobin 12.2 g/dL (11.5-15.4); Immature Granulocytes % 0.4 % (0-4); Lymphocytes # 1.3 K/mcL (0.6-4.6); Lymphocytes % 13.8 %; Mean Corpuscular HGB Conc 31.6 g/dL (31.6-35.5); Mean Corpuscular Hemoglobin 29.3 pg (28.0-33.3); Mean Corpuscular Volume 92.6 fL (83.0-100.0); Mean Platelet Volume 8.9 fL (9.4-12.4); Monocytes # 0.6 K/mcL (0.0-1.3); Monocytes % 6.5 %; Neutrophils # 7.2 K/mcL (1.6-8.9); Platelet Count 247 K/mcL (140-400); Red Blood Count 4.17 M/mcL (3.82-4.97); Red Cell Distribution Width 15.4 % (11.5-14.5); White Blood Count 9.2 K/mcL (4.3-11.1)
[2020-10-22 08:14] LABS: Alanine Aminotransferase 7 Units/L (7-52); Albumin 3.1 g/dL (3.5-5.7); Albumin/Globulin Ratio 1.2 (1.1-2.2); Alkaline Phosphatase 108 Units/L (34-104); Aspartate Amino Transferase 9 Units/L (13-39); BUN/Creatinine Ratio 24 (6-26); Bilirubin,Total 0.5 mg/dL (0.3-1.0); Blood Urea Nitrogen 15 mg/dL (8-23); Calcium 8.4 mg/dL (8.6-10.3); Carbon Dioxide 31 mEq/L (23-29); Chloride 107 mEq/L (98-107); Globulin 2.5 g/dL (2.4-3.5); Glucose 175 mg/dL (70-105); Magnesium 1.5 mg/dL (1.6-2.6); Osmolality,Calculated 301 (280-300); Potassium 4.1 mEq/L (3.5-5.1); Sodium 143 mEq/L (136-145); Total Protein 5.6 g/dL (6.4-8.9); eGFR For African Americans > 60 (> 60); eGFR For Non-African Americans > 60 (> 60)
[2020-10-22] MEDS: Insulin LISPRO 300 UNITS/3 ML VIAL SQ SCH ×3 (08:53→16:21)
[2020-10-22] MEDS: Rivastigmine Tartrate (oral) 1.5 MG CAPSULE PO SCH ×2 (08:53→23:27)
[2020-10-22] MEDS: lisinopriL 5 MG TABLET PO SCH (08:55)
[2020-10-22] MEDS: OLANZapine 5 MG TAB.RAPDIS PO SCH ×2 (08:55→22:53)
[2020-10-22] MEDS: Cholecalciferol (D-3) 1,000 UNIT (25MCG) TABLET PO SCH (08:56)
[2020-10-22] MEDS: Latanoprost 2.5 ML BOTTLE BOTH EYES SCH (23:35)
[2020-10-23] MEDS: 0.9 % Sodium Chloride 1,000 ML IVC SCH ×4 (00:07→11:55)
[2020-10-23] MEDS: Piperacillin/Tazobactam 3.375 GM in 0.9 % Sodium Chloride Mini Bag 100 ML IVPB SCH ×3 (06:09→21:38)
[2020-10-23] MEDS: Rivastigmine Tartrate (oral) 1.5 MG CAPSULE PO SCH ×2 (08:27→22:01)
[2020-10-23] MEDS: lisinopriL 5 MG TABLET PO SCH (08:27)
[2020-10-23] MEDS: OLANZapine 5 MG TAB.RAPDIS PO SCH ×2 (08:28→21:37)
[2020-10-23] MEDS: Cholecalciferol (D-3) 1,000 UNIT (25MCG) TABLET PO SCH (08:28)
[2020-10-23] MEDS: Insulin LISPRO 300 UNITS/3 ML VIAL SQ SCH ×3 (08:28→16:54)
[2020-10-23] MEDS: Latanoprost 2.5 ML BOTTLE BOTH EYES SCH (22:00)
[2020-10-24] MEDS: Piperacillin/Tazobactam 3.375 GM in 0.9 % Sodium Chloride Mini Bag 100 ML IVPB SCH ×2 (05:17→12:24)
[2020-10-24 06:44] VITALS: BP 146/84
[2020-10-24 07:22] LABS: Hematocrit 37.5 % (35.3-44.9); Hemoglobin 11.7 g/dL (11.5-15.4); Mean Corpuscular HGB Conc 31.2 g/dL (31.6-35.5); Mean Corpuscular Hemoglobin 28.7 pg (28.0-33.3); Mean Corpuscular Volume 92.1 fL (83.0-100.0); Mean Platelet Volume 8.9 fL (9.4-12.4); Platelet Count 258 K/mcL (140-400); Red Blood Count 4.07 M/mcL (3.82-4.97); Red Cell Distribution Width 15.1 % (11.5-14.5); White Blood Count 7.2 K/mcL (4.3-11.1)
[2020-10-24 07:40] LABS: BUN/Creatinine Ratio 25 (6-26); Blood Urea Nitrogen 15 mg/dL (8-23); Calcium 8.5 mg/dL (8.6-10.3); Carbon Dioxide 32 mEq/L (23-29); Chloride 106 mEq/L (98-107); Glucose 197 mg/dL (70-105); Osmolality,Calculated 302 (280-300); Sodium 143 mEq/L (136-145); eGFR For African Americans > 60 (> 60); eGFR For Non-African Americans > 60 (> 60)
[2020-10-24] MEDS: Rivastigmine Tartrate (oral) 1.5 MG CAPSULE PO SCH ×2 (08:37→20:09)
[2020-10-24] MEDS: lisinopriL 5 MG TABLET PO SCH (08:37)
[2020-10-24] MEDS: Cholecalciferol (D-3) 1,000 UNIT (25MCG) TABLET PO SCH (08:38)
[2020-10-24] MEDS: OLANZapine 5 MG TAB.RAPDIS PO SCH ×2 (08:38→20:09)
[2020-10-24] MEDS: Insulin LISPRO 300 UNITS/3 ML VIAL SQ SCH ×3 (08:48→17:20)
[2020-10-24] MEDS: 0.9 % Sodium Chloride 1,000 ML IVC SCH (12:15)
[2020-10-24] MEDS ORDERED: Doxycycline 100 MG CAPSULE PO SCH (18:00)
[2020-10-24 19:22] LABS: Adenovirus Not Detected (Not Detect); Bordetella Pertussis Not Detected (Not Detect); Chlamydophila pneumoniae Not Detected (Not Detect); Coronavirus 229E Not Detected (Not Detect); Coronavirus HKU1 Not Detected (Not Detect); Coronavirus NL63 Not Detected (Not Detect); Coronavirus OC43 Not Detected (Not Detect); Human Metapneumovirus Not Detected (Not Detect); Human Rhinovirus/Enterovirus Not Detected (Not Detect); Influenza A Subtype 2009 H1 Not Detected (Not Detect); Influenza B Not Detected (Not Detect); Mycoplasma pneumoniae Not Detected (Not Detect); Parainfluenza Virus 1 Not Detected (Not Detect); Parainfluenza Virus 2 Not Detected (Not Detect); Parainfluenza Virus 3 Not Detected (Not Detect); Parainfluenza Virus 4 Not Detected (Not Detect); Respiratory Syncytial Virus Not Detected (Not Detect); SARS-CoV-2 Not Detected (Not Detect)
[2020-10-24] MEDS: Latanoprost 2.5 ML BOTTLE BOTH EYES SCH (20:10)
== END 2020-10-24 21:20 | DRG 720 ==
LOC: EMEROOPIK 13:00 → INPPIK 13:00
PROVIDERS: ADMIT Family Medicine; ATTEND Family Medicine